=== PATIENT | female | born 1980 | race African-American/Black ===

== ENCOUNTER → 2017-07-04 | Outpatient (CLI) | payer OTHER ==
[~2017-07-04] MED LIST: CYMBALTA60 MG PO; LODINE XL500 MG PO; LUNESTA2 MG PO; NAPROSYN500 MG PO; TORADOL 10 MG T10 MG PO; ULTRAM 50MG TAB50 MG PO; VALIUM2 MG PO
== END ==
LOC: MRI 07:33
DX: M47.816 Spondylosis without myelopathy or radiculopathy, lumbar region (principal); M48.061 Spinal stenosis, lumbar region without neurogenic claudication

== ENCOUNTER → 2017-10-03 | Outpatient (CLI) | payer OTHER ==
[~2017-10-03] MED LIST changes: +BELSOMRA20 MG PO; +GABAPENTIN 100100 MG PO; +OXYCODONE-ACET1 EACH PO; +VITAMIN D1000 UNI1 PO; +XANAX 0.5 MG0.5 MG PO
== END ==
LOC: RAD 12:41
DX: M79.642 Pain in left hand (principal); M25.522 Pain in left elbow

== ENCOUNTER → 2017-12-24 | Outpatient (CLI) | payer OTHER ==
[~2017-12-24] MED LIST changes: -XANAX 0.5 MG0.5 MG PO
== END ==
LOC: RAD 10-08 14:24 → MRI 09:38
DX: M25.522 Pain in left elbow (principal)

== ENCOUNTER → 2018-01-15 | Outpatient (CLI) | payer OTHER | LOC: MRI 07:07 | DX: R51 Headache (principal) ==

== ENCOUNTER 2018-01-31 05:47 | Day surgery (SDC) | payer OTHER ==
[~2018-01-31] VITALS: Ht 175.3 cm; Wt 151.0 kg
--- NOTE | ~2018-01-31 | O ---
[facility] [place] [address] OPERATIVE REPORT Name: CHELLY LOPEZ Room #: 150-7 [facility] M.R.#: [id number] Admission: 01/31/18 Attend Phys: Rehan Hermosillo Discharge: Date of : 84 Report #: [id number] THIS REPORT FOR: //name// CC: Rehan Ward DATE OF SERVICE: 01/31/2018 PREOPERATIVE DIAGNOSES: Left shoulder pain, rotator cuff tear, impingement syndrome and morbid obesity. POSTOPERATIVE DIAGNOSES: Left shoulder pain; rotator cuff tear, high grade, near complete involving the supraspinatus; complex labral tear; intra-articular synovitis; impingement syndrome, subacromial bursitis and morbid obesity. PROCEDURES PERFORMED: Left shoulder arthroscopy, rotator cuff repair, subacromial decompression and extensive debridement. SURGEON: Rehan Sequeira M.D. ANESTHESIA: General with attempted preoperative ultrasound-guided interscalene block. FLUIDS: 800 mL crystalloid. ESTIMATED BLOOD LOSS: Less than 5 mL. DESCRIPTION OF PROCEDURE: After proper identification of the patient and operative site in the preoperative holding area, the operative site was signed by myself. Prophylactic antibiotics were given. The patient elected to receive an interscalene block after reviewing the risks, benefits, alternatives and potential complications with Dr. Diana Khan. Dr. Khan attempted an ultrasound-guided as well as a nerve stimulator technique with ultrasound guidance for her interscalene block. She had difficulty visualizing nerve roots and attempted to perform a block in the area that she thought was most appropriate. The patient noted minimal muscle twitching with nerve stimulator, and based on this, it was difficult to tell if she was going to receive much benefit from her block. The patient was then transferred to the operative suite after induction of satisfactory general anesthesia. The left shoulder was examined. It was stable throughout a full arc of motion and comparable to the preoperative assessment. She was carefully positioned in the right lateral decubitus position. Samaniego bag and extra roll were utilized to support the torso. Left shoulder was sterilely prepped and draped in the usual manner and placed in 10 pounds of balanced arthroscopic suspension. Posterior portal was established. Due to the [facility] [address] [place] [address] OPERATIVE REPORT Name: CHELLY LOPEZ Room #: 150-7 [facility] M.R.#: [id number] Admission: 01/31/18 Attend Phys: Rehan Hermosillo Discharge: Date of : 84 Report #: [id number] patient's body size and obesity, additional time was required to complete the procedure due to the larger soft tissue envelope. An anterior superior portal was created using a spinal needle for localization. Examination of the glenohumeral joint revealed articular-sided tear, the undersurface of the supraspinatus consistent with her preoperative MRI imaging. There was complex labral tearing noted in the anterior superior and posterior superior quadrants. Long head of the biceps tendon was intact and stable within its groove. No evidence of groove pathology was noted. The upper border of the subscapularis was intact. The remainder of the subscapularis was intact. It was stable in its superior labral attachment as well as the glenoid. The remaining frayed labrum was carefully debrided. Chondral surfaces were intact. The articular-sided tear was also marked with a 0 Prolene marking stitch. From the bursal side, a very thickened bursa was encountered. This was resected with motorized shaver. There was fraying in the undersurface of the coracoacromial arch and prominence to the acromion was removed using motorized bur. Approximately 3 mm of bone was resected here. The patient rotator cuff of the supraspinatus demonstrated pronounced softening and the probe could easily be passed through the few remaining bursal fibers. This area was carefully debrided with motorized shaver and a small non-retracted crescent-shaped tear that was less than a centimeter in size was noted. Greater tuberosity was prepared with combination of hand and motorized instrumentation. Additional posterolateral and lateral portals were created as well as a portal off the lateral border of the acromion. A double-loaded 4.75-mm SwiveLock anchor was utilized for the medial row. Sutures were passed in a horizontal mattress fashion and tied with locking sliding knot. These stitches were then placed through a separate SwiveLock anchor more laterally based, creating a double-row construct. Repair construct was stable to probing. Subacromial space was thoroughly irrigated with normal saline, 20 mL of 0.2% Naropin was injected in the subacromial space to aid in postoperative pain control based on the potential for her block to not have taken effect. The sterile dressing was applied. She was placed in a sling and abduction pillow for 6 weeks postoperatively. By: [id number] Rehan Sequeira MD /nt
[~2018-01-31 05:47] MED LIST changes: +XANAX 0.5 MG0.5 MG PO
[2018-01-31 06:54] VITALS: BP 143/93
[2018-01-31 09:55] VITALS: BP 143/93
== END 2018-01-31 10:55 | disposition home or self-care (01) ==
LOC: TBA 05:47 → OR 05:47
DX: M75.122 Complete rotator cuff tear or rupture of left shoulder, not specified as traumatic (principal); S43.402A Unspecified sprain of left shoulder joint, initial encounter; M65.812 Other synovitis and tenosynovitis, left shoulder; M75.42 Impingement syndrome of left shoulder; M75.52 Bursitis of left shoulder; E66.01 Morbid (severe) obesity due to excess calories; M19.90 Unspecified osteoarthritis, unspecified site; G47.33 Obstructive sleep apnea (adult) (pediatric); F17.210 Nicotine dependence, cigarettes, uncomplicated; Z98.890 Other specified postprocedural states; Z79.899 Other long term (current) drug therapy; Z91.041 Radiographic dye allergy status; Z91.040 Latex allergy status; Z68.42 Body mass index [BMI] 45.0-49.9, adult; X58.XXXA Exposure to other specified factors, initial encounter; Y93.89 Activity, other specified; Y92.89 Other specified places as the place of occurrence of the external cause; Y99.8 Other external cause status
CPT/HCPCS: 50101; 70005

== ENCOUNTER → 2018-08-07 | Outpatient (CLI) | payer OTHER, SELFPAY | LOC: CAT 14:38 | DX: G31.9 Degenerative disease of nervous system, unspecified (principal); M85.2 Hyperostosis of skull; G96.19 Other disorders of meninges, not elsewhere classified ==

== ENCOUNTER → 2018-09-12 | Outpatient (CLI) | payer OTHER, SELFPAY | LOC: MRI 06:28 | DX: M17.0 Bilateral primary osteoarthritis of knee (principal); M25.761 Osteophyte, right knee; M25.762 Osteophyte, left knee; M25.461 Effusion, right knee; M65.861 Other synovitis and tenosynovitis, right lower leg ==

== ENCOUNTER → 2018-09-24 | Outpatient (CLI) | payer OTHER, SELFPAY | LOC: MRI 07:42 | DX: M47.26 Other spondylosis with radiculopathy, lumbar region (principal); M51.16 Intervertebral disc disorders with radiculopathy, lumbar region; M48.07 Spinal stenosis, lumbosacral region; M51.27 Other intervertebral disc displacement, lumbosacral region; M47.897 Other spondylosis, lumbosacral region ==

== ENCOUNTER 2019-02-02 16:35 | Emergency (ER) | payer OTHER ==
[~2019-02-02] VITALS: Ht 177.8 cm; Wt 135.2 kg
[2019-02-02 16:46] VITALS: BP 160/82
[2019-02-02] MEDS ORDERED: NORCO 5-325 TA1 EAC1 PO (17:17)
== END 2019-02-02 17:33 | disposition home or self-care (01) ==
LOC: ER 16:35
DX: G89.29 Other chronic pain (principal); M79.10 Myalgia, unspecified site; M19.90 Unspecified osteoarthritis, unspecified site; G47.00 Insomnia, unspecified; G47.30 Sleep apnea, unspecified; F17.210 Nicotine dependence, cigarettes, uncomplicated; Z91.040 Latex allergy status; Z91.041 Radiographic dye allergy status

== ENCOUNTER 2019-02-04 08:39 | Emergency (ER) | payer OTHER ==
[~2019-02-04] VITALS: Ht 177.8 cm; Wt 135.2 kg
[~2019-02-04 08:39] MED LIST changes: +NORCO 5-325 TA1 EAC1 PO
[2019-02-04 08:40] VITALS: BP 147/78
[2019-02-04] MEDS ORDERED: MEDROL DOSPAK21 TA1 PO (08:55)
[2019-02-04] MEDS ORDERED: NORCO 5-325 TA1 EAC1 PO (09:10)
== END 2019-02-04 09:37 | disposition home or self-care (01) ==
LOC: ER 08:39
DX: M17.0 Bilateral primary osteoarthritis of knee (principal); M19.012 Primary osteoarthritis, left shoulder; M19.011 Primary osteoarthritis, right shoulder; G89.29 Other chronic pain; G47.00 Insomnia, unspecified; G47.30 Sleep apnea, unspecified; G43.909 Migraine, unspecified, not intractable, without status migrainosus; M48.00 Spinal stenosis, site unspecified; F32.9 Major depressive disorder, single episode, unspecified; F41.9 Anxiety disorder, unspecified; Z91.041 Radiographic dye allergy status; Z91.040 Latex allergy status

== ENCOUNTER → 2019-03-26 | Outpatient (CLI) | payer OTHER ==
[~2019-03-26] VITALS: Ht 172.7 cm; Wt 144.2 kg
[~2019-03-26] MED LIST changes: +CELEBREX 200 M200 M1 PO; +CHANTIX1 MG PO; +LYRICA 75 MG CA75 MG PO; +MEDROL DOSPAK21 TA1 PO; +OMEPRAZOLE MAGN20 MG PO; +TOPAMAX50 MG PO; +VITAMIN D5000 UNIT PO
[2019-03-26 09:47] VITALS: BP 133/76
--- NOTE | 2019-03-26 10:30 | NUR ---
Pain Clinic Assessment: 1. History of Osteoarthritis: * DJD History of Rheumatoid Arthritis: NO 2. Height: 5 ft. 8 in. 172.7 cm. Weight: 318.0 lb. oz. 144.244 kg. Patient's BMI: 48.4 3. Vital Signs: BP: 133/76 Pulse: 56 Resp: 16 Temp: 02 Sat: 100 ECG Mon: 4. Pain Intensity: 8 5. Fall Risk: Dizziness: N Needs help standing or walking: N Fallen in the last 3 months: Y Fall risk comments: 6. Patient on Blood Thinner: None 7. History of Hypertension: N 8. Opioid Therapy greater than 6 weeks: N Opiate Contract Signed: 9. Risk Assessment Tool Provided: 10. Functional Assessment Tool: 55/ 11. Recreational Drug Use: Unknown Drug Type: Tobacco Use: Former Smoker Tobacco Type: Cigars Amount or Packs/day: 1-2/DAY How Many Years: Alcohol Use: Yes Frequency: Special Occasions Quant: "OCCASIONAL" PER PT
--- NOTE | 2019-04-02 16:33 | HPC ---
[facility] [address] [address] [place] [address] PAIN MANAGEMENT CONSULTATION Name: CHELLY LOPEZ Room #: REG Arden Lara.#: [id number] Admission: 03/26/19 Attend Phys: Carlos Enrique Russ MD Discharge: Date of : 84 Report #: [id number] THIS REPORT FOR: //name// CC: Tonja Street [employer]ER Carlos Enrique Russ DATE OF SERVICE: 03/26/2019 I am seeing the patient today at the request of Dr. Street for spinal stenosis with neurogenic claudication. She reports that she has had ongoing pain since 2010. Pain is constant, ongoing severe, associated also with numbness, tingling, and weakness. It is worse with standing and walking and improves very little. As I took the history today, the word that kept coming to mins was sullen. She was short, seemed a bit suspicious and depressed. She scores her pain as an 8/10. Described as continuous, steady, constant, burning and stabbing. She has tried physical therapy and chiropractic which has helped a little bit with her upper back, but not much with her lower back. She sees a trusted chiropractor in [place], [place]. I asked about medications for pain and she told me that she had taken 300-400 mg of tramadol at this time with only modest improvement. She had increased the dose because the normal dose of 1-2 tablets was ineffective. CURR MEDICATIONS: Listed are Lyrica 200 mg daily, Celebrex 200 mg daily, Topamax 50 mg, alprazolam 1 mg p.r.n., omeprazole 20 mg, vitamin D recommended by chiropractor and Chantix 1 mg, which she has been on for 1 year. She has not smoked over that period of time and hopes to go off soon. She was on gabapentin, tramadol and has gone off of those recently in place of Lyrica. Medications were written by Dr. Odell, Dr. Street and Dr. Ward. ALLERGIES: LATEX. PAST MEDICAL HISTORY: Significant for uterine ablation, gastric sleeve surgery in 2016. She describes some hospital arthritis. 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 She denies use of tobacco and drinks alcohol occasionally in a social setting. She reports that she is undergoing a divorce. This may be why her mood appears to be depressed. REVIEW OF SYSTEMS: She has had some fatigue, weakness and migraine headaches, chronic sinuses, loss of appetite, depression and insomnia. Impact pain score is 65/70, extremely high number with complete interference of enjoyment of life, relationships with others, sleep and 9/10 for mood. [facility] [address] [place] [address] PAIN MANAGEMENT CONSULTATION Name: CHELLY LOPEZ Room #: REG CLArden Lara.#: [id number] Admission: 03/26/19 Attend Phys: Carlos Enrique Russ MD Discharge: Date of : 84 Report #: [id number] PHYSICAL EXAMINATION: GENERAL: She was quite respectful and answered questions directly, but again mood appeared depressed. VITAL SIGNS: Her height is 5 feet 8, weight 318, BMI of 48.4, blood pressure 133/76, heart rate is 56, respirations 16, O2 sat 100, pain intensity 8/10. She moves from sitting to standing position, ambulates with mild antalgic features. There is a noted genu varus. HEENT: Normal. Pupils equal, round, reactive to light. EOMs are intact. Mucous membranes are moist. NECK: Supple. CHEST: Clear to auscultation. CARDIAC: Rhythm regular, without murmur. Examination of the spine reveals some limitations in range of motion. Tenderness across the lumbosacral spine. Straight leg raising is bilaterally positive consistent with radiculopathy. MRI scan is reviewed as well as notes from Dr. Js Moses. These revealed spinal stenosis that would be consistent with neurogenic claudication, her presenting diagnosis. MRI of lumbar spine shows diffuse posterior disk bulging at L2-L3 and a narrowing of the thecal sac to 7 mm consistent with severe thecal sac stenosis on a developmentally slender spinal canal. There is bilateral facet arthrosis and narrowing. There is suggested impingement as well at L4-L5 with severe bilateral neural foraminal stenosis at that level impinging on the left L5 nerve roots. IMPRESSION: Lumbar radiculopathy. I think her pain is most likely related to nerve root impingement. She has had a single epidural injection performed by Dr. Saba, but I do not have those records. I have suggested that we repeat a trial of epidural injections today. I did not write for medication today in the office. She may benefit from an antidepressant medication for chronic pain and depression. Followup visit for L4-L5 epidural injection as soon as we can obtain preauthorization. <ELECTRONICALLY SIGNED> By: Carlos Enrique Russ MD 04/02/19 1633 [id number] [id number] Carlos Enrique Russ MD /nt
== END ==
LOC: PAIN 06:48
DX: M54.16 Radiculopathy, lumbar region (principal); M48.062 Spinal stenosis, lumbar region with neurogenic claudication; Z91.040 Latex allergy status; Z79.899 Other long term (current) drug therapy

== ENCOUNTER → 2019-04-27 | Outpatient (CLI) | payer OTHER ==
[~2019-04-27] VITALS: Ht 175.3 cm; Wt 136.1 kg
[~2019-04-27] MED LIST changes: +TRAMADOL HCL E200 MG PO
--- NOTE | ~2019-04-27 | HPC ---
[address] [address] PAIN MANAGEMENT CONSULTATION Name: CHELLY LOPEZ Room #: REG Arden Keller#: [id number] Admission: 04/27/19 ������������������ Attend Phys: Carlos Enrique Russ MD Discharge: ������������������ Date of : 84 Report #: [id number] THIS REPORT FOR: //name// CC: Tonja Evangelista Jad Russ DATE OF SERVICE: 04/27/2019 Followup visit for lumbar epidural steroid injection. The patient returns to pain clinic today for the epidural injection discussed on her initial assessment. We have received preauthorization to go forward. Symptoms have been essentially unchanged since that time. She continues to complain of pain and neurogenic claudication radiating into both legs. I reviewed the MRI once again with her, showing diffuse posterior disk bulge at L2-L3 as well as a narrowed canal. There is also a narrow canal at L4-L5 with diffuse disk bulging and stenosis. She has severe bilateral neural foraminal stenosis and impingement upon the exiting L5 nerve roots. IMPRESSION: Lumbar radiculopathy. PROCEDURE: Lumbar epidural steroid injection under fluoroscopic guidance. I have chosen the L3-L4 interspace. After informed consent, she was taken to fluoroscopic suite. She was placed prone, skin prepped with ChloraPrep. Skin anesthetized over the L3-L4 interspace. A 20-gauge Tuohy epidural needle advanced first attempt in the epidural space with loss of resistance. There was no blood or CSF aspirated. A 1 mL of Omnipaque injected with good spread of dye observed into the epidural space, followed by 3 mL of 0.5% lidocaine mixed with 10 mg of dexamethasone. She tolerated the procedure well, was observed for 45 minutes and discharged. ��������������������������������������������� ���������������������������������������� By: ��������������������������������������������� [id number] Carlos Enrique Russ MD /nt
[2019-04-27 08:55] VITALS: BP 146/96
--- NOTE | 2019-04-27 09:02 | NUR ---
Pain Clinic Assessment: 1. History of Osteoarthritis: DJD History of Rheumatoid Arthritis: NO 2. Height: 5 ft. 9 in. 175.3 cm. Weight: 300.0 lb. oz. 136.080 kg. Patient's BMI: 44.3 3. Vital Signs: BP: 146/96 Pulse: 56 Resp: 16 Temp: 02 Sat: 100 ECG Mon: 4. Pain Intensity: 8 5. Fall Risk: Dizziness: N Needs help standing or walking: N Fallen in the last 3 months: N Fall risk comments: 6. Patient on Blood Thinner: None 7. History of Hypertension: N 8. Opioid Therapy greater than 6 weeks: N Opiate Contract Signed: 9. Risk Assessment Tool Provided: 2-low 10. Functional Assessment Tool: 55/70 11. Recreational Drug Use: Never Drug Type: Tobacco Use: Former Smoker Tobacco Type: Amount or Packs/day: How Many Years: Alcohol Use: Yes Frequency: Quant:
== END | disposition home or self-care (01) ==
LOC: PAIN 04-07 06:48
DX: M51.16 Intervertebral disc disorders with radiculopathy, lumbar region (principal); M48.062 Spinal stenosis, lumbar region with neurogenic claudication; M48.061 Spinal stenosis, lumbar region without neurogenic claudication; M99.73 Connective tissue and disc stenosis of intervertebral foramina of lumbar region; Z87.891 Personal history of nicotine dependence; Z91.040 Latex allergy status; Z79.899 Other long term (current) drug therapy

== ENCOUNTER → 2019-06-18 | Outpatient (CLI) | payer OTHER ==
[~2019-06-18] VITALS: Ht 172.7 cm; Wt 137.6 kg
[~2019-06-18] MED LIST changes: +BACTRIM DS TAB1 EAC1 PO; +HYDROCODON-ACE1 EAC7 PO
--- NOTE | ~2019-06-18 | HPC ---
[facility] [place] [address] [address] [place] [address] PAIN MANAGEMENT CONSULTATION Name: CHELLY LOPEZ [id number] Admission: 06/18/19 Attend Phys: Carlos Enrique Russ MD Discharge: Date of : 84 Report #: [id number] THIS REPORT FOR: //name// CC: Tonja Street SHANNON Russ DATE OF SERVICE: 06/18/2019 REASON FOR VISIT: Followup visit for lumbar radiculopathy. SUBJECTIVE: The patient returns to the Pain Clinic today for possible repeat epidural injection. She received an injection on 04/27/2019 and had significant improvement, which has been sustained. Prior to her last injection, her pain score was a 7/10; it is now at 3/10, but it is bothering her nearly every day to some degree. She finds that there are periods where she has spasms that radiate into her right hip. These generally occur right after she gets up. They do resolve fairly quickly if she moves about, but the spasms are new, within the last 2 to 3 weeks, and indicate that the block may be diminishing in its effect somewhat. We talked about the importance of regular exercise and she is continuing to remain active. 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 She is concerned about this increased activity. PHYSICAL EXAMINATION: GENERAL: She is a pleasant 38-year-old. VITAL SIGNS: Blood pressure is 118/71, heart rate 60, respirations 16. Her BMI is 46.1. NEUROLOGIC: She can move independently from sitting to standing position. Her gait is mildly antalgic. She has tenderness across the low back, pain of a radiating nature into the right hip. Sensation and strength are intact. IMPRESSION: Low back pain with radiculopathy to the right hip with good response to initial epidural steroid injection. This is likely related to a diffuse posterior disk bulge with narrowing of the thecal sac to 7 mm, resulting in [id number] thecal sac stenosis on a developmentally slender central canal. She in addition has bilateral facet arthrosis, contributing to neural foraminal narrowing. RECOMMENDATION: Repeat L3-L4 epidural injection under fluoroscopic guidance. PROCEDURE: After informed consent, she was taken to the fluoroscopic suite, placed prone. The skin was prepped with ChloraPrep. Skin was anesthetized over the L3-L4 interspace. Using biplanar fluoroscopic views, I advanced the needle nicely into the epidural space using loss of resistance [place] [address] PAIN MANAGEMENT CONSULTATION Name: CHELLY LOPEZ Room #: REG [facility]#: [id number] Admission: 06/18/19 Attend Phys: Carlos Enrique Russ MD Discharge: Date of : 84 Report #: [id number] blood, nor CSF aspirated. A 1 mL of Omnipaque was injected. Good spread of dye was observed into the epidural space, was followed by 3 mL of 0.5% lidocaine mixed with 80 mg of triamcinolone. She tolerated the procedure well, was observed for 45 minutes and discharged. Followup visit planned as needed. By: [id number] Carlos Enrique Russ MD /nt
[2019-06-18 09:58] VITALS: BP 118/71
--- NOTE | 2019-06-18 10:09 | NUR ---
Pain Clinic Assessment: 1. History of Osteoarthritis: DJD History of Rheumatoid Arthritis: NO 2. Height: 5 ft. 8 in. 172.7 cm. Weight: 303.4 lb. oz. 137.622 kg. Patient's BMI: 46.1 3. Vital Signs: BP: 118/71 Pulse: 60 Resp: 16 Temp: 02 Sat: 100 ECG Mon: 4. Pain Intensity: 3 5. Fall Risk: Dizziness: N Needs help standing or walking: N Fallen in the last 3 months: N Fall risk comments: 6. Patient on Blood Thinner: None 7. History of Hypertension: N 8. Opioid Therapy greater than 6 weeks: N Opiate Contract Signed: 9. Risk Assessment Tool Provided: 2-low 10. Functional Assessment Tool: 55/ 11. Recreational Drug Use: Never Drug Type: Tobacco Use: Former Smoker Tobacco Type: Amount or Packs/day: How Many Years: Alcohol Use: Yes Frequency: Quant:
== END | disposition home or self-care (01) ==
LOC: RAD 07:01 → PAIN 07:01
DX: M54.16 Radiculopathy, lumbar region (principal); Z87.891 Personal history of nicotine dependence; Z91.040 Latex allergy status; Z79.899 Other long term (current) drug therapy

== ENCOUNTER → 2019-06-22 | Outpatient (CLI) | payer OTHER ==
[~2019-06-22] VITALS: Ht 172.7 cm; Wt 137.4 kg
--- NOTE | ~2019-06-22 | HPC ---
[facility] [place] [address] PAIN MANAGEMENT CONSULTATION Name: CHELLY LOPEZ [facility] [id number] Admission: 06/22/19 Attend Phys: Carlos Ernique Russ MD Discharge: Date of : 84 Report #: [id number] THIS REPORT FOR: //name// CC: Tonja Street SHANNON Russ DATE OF SERVICE: 06/22/2019 Followup visit for complaints of back and leg pain following the epidural injection. We received a phone call today from the patient who received an epidural injection just 5 days ago. The injection went smoothly was performed almost identical to the injection that provided her with a fairly dramatic relief on 04/27/2019. I confirmed needle placement from the epidural shot performed on 06/18/2019 and also location of the epidurogram. Because of her poor response and ongoing back pain, I asked her to return to the clinic today for assessment. She had not been able to take her own temperature and then has not been able to have anyone examine her back. Today, she reports that her pain intensity is high. PHYSICAL EXAMINATION: VITAL SIGNS: Blood pressure is 125/77, heart rate 62, respirations 16. She is afebrile. She moves independently from sitting to standing position, but walks with antalgic gait. She complains of pain across her low back and localized tenderness at the spot of the injection, although I can barely see the needle courtney. There is no fluctuance, no redness, no evidence of infection. Straight leg raising is negative. Although she complains of some diffuse pain, nonradicular radiating down into both legs. There are no muscle spasms. IMPRESSION: 1. Chronic low back pain with radiculopathy. She has severe stenosis at L2-L3 due to disk bulging and a developmentally slender spinal canal. There is also subarticular zone stenosis consistent with trefoil type stenosis at L4-L5, also on a developmentally slender canal. 2. Recurring low back pain after epidural injection. I do not see any evidence here of infection or other concerns. I cannot answer why she is having more pain after the injection than she did prior. We will observe cautiously and I gave her my own cell phone number if anything changes or if she develops any additional symptoms of concern. I have given her a prescription for hydrocodone for the acute pain over the next 3-5 days with hopes that this will resolve on [address] [address] PAIN MANAGEMENT CONSULTATION Name: CHELLY LOPEZ Room #: REG JOSR Keller#: [id number] Admission: 06/22/19 Attend Phys: Carlos Enrique Russ MD Discharge: Date of : 84 Report #: [id number] its own spontaneously and I have written her a note to be excused from work until Saturday. Follow up planned by phone. By: 1804 0628 Carlos Enrique Russ MD /nt
[2019-06-22 13:42] VITALS: BP 125/77
[2019-06-22 13:49] VITALS: BP 125/77
--- NOTE | 2019-06-22 14:12 | NUR ---
Pain Clinic Assessment: 1. History of Osteoarthritis: DJD History of Rheumatoid Arthritis: NO 2. Height: 5 ft. 8 in. 172.7 cm. Weight: 303.0 lb. oz. 137.440 kg. Patient's BMI: 46.1 3. Vital Signs: BP: 125/77 Pulse: 62 Resp: 16 Temp: 02 Sat: 100 ECG Mon: 4. Pain Intensity: 12 5. Fall Risk: Dizziness: Y Needs help standing or walking: N Fallen in the last 3 months: N Fall risk comments: 6. Patient on Blood Thinner: None 7. History of Hypertension: N 8. Opioid Therapy greater than 6 weeks: N Opiate Contract Signed: 9. Risk Assessment Tool Provided: 2-low 10. Functional Assessment Tool: 55/ 11. Recreational Drug Use: Never Drug Type: Tobacco Use: Former Smoker Tobacco Type: Amount or Packs/day: How Many Years: Alcohol Use: Yes Frequency: Quant:
== END ==
LOC: PAIN 13:17
DX: M54.16 Radiculopathy, lumbar region (principal); M48.061 Spinal stenosis, lumbar region without neurogenic claudication

== ENCOUNTER → 2019-06-29 | Outpatient (CLI) | payer OTHER | LOC: MRI 12:02 | DX: M51.46 Schmorl's nodes, lumbar region (principal); M51.45 Schmorl's nodes, thoracolumbar region; M85.68 Other cyst of bone, other site; M51.16 Intervertebral disc disorders with radiculopathy, lumbar region; M48.061 Spinal stenosis, lumbar region without neurogenic claudication; M12.88 Other specific arthropathies, not elsewhere classified, other specified site; M25.78 Osteophyte, vertebrae; M51.27 Other intervertebral disc displacement, lumbosacral region ==

== ENCOUNTER 2019-09-02 06:27 | Emergency (ER) | payer OTHER ==
[~2019-09-02] VITALS: Ht 172.7 cm; Wt 140.2 kg
[~2019-09-02 06:27] MED LIST changes: +NORCO 10-325 T1 EACH PO
[2019-09-02] MEDS ORDERED: NORCO 10-325 T1 EAC1 PO (09:08)
[2019-09-02 09:18] VITALS: BP 141/73
[2019-09-10] MEDS ORDERED: NORCO 10-325 T1 EACH PO (12:58)
[2019-09-10] MEDS ORDERED: NORCO 10-325 T1 EAC1 PO (12:58)
== END 2019-09-02 09:19 | disposition home or self-care (01) ==
LOC: ER 06:27
DX: G89.4 Chronic pain syndrome (principal); Z87.891 Personal history of nicotine dependence; Z91.040 Latex allergy status

== ENCOUNTER → 2019-09-10 | Outpatient (CLI) | payer OTHER ==
[~2019-09-10] VITALS: Ht 172.7 cm; Wt 139.3 kg
[~2019-09-10] MED LIST changes: +NORCO 10-325 T1 EAC1 PO
[2019-09-10 10:41] VITALS: BP 152/81
--- NOTE | 2019-09-10 11:00 | NUR ---
Pain Clinic Assessment: 1. History of Osteoarthritis: DJD History of Rheumatoid Arthritis: NO 2. Height: 5 ft. 8 in. 172.7 cm. Weight: 307.0 lb. oz. 139.255 kg. Patient's BMI: 46.7 3. Vital Signs: BP: 152/81 Pulse: 75 Resp: 18 Temp: 02 Sat: 100 ECG Mon: 4. Pain Intensity: 8 5. Fall Risk: Dizziness: N Needs help standing or walking: N Fallen in the last 3 months: N Fall risk comments: 6. Patient on Blood Thinner: None 7. History of Hypertension: N 8. Opioid Therapy greater than 6 weeks: N Opiate Contract Signed: 9. Risk Assessment Tool Provided: 2-low 10. Functional Assessment Tool: 55/70 11. Recreational Drug Use: Never Drug Type: Tobacco Use: Former Smoker Tobacco Type: Amount or Packs/day: How Many Years: Alcohol Use: Yes Frequency: Quant:
--- NOTE | 2019-09-10 17:02 | HPC ---
[facility] [address] [address] [address] PAIN MANAGEMENT CONSULTATION Name: CHELLY LOPEZ Room #: REG JOSR Jane.#: [id number] Admission: 09/10/19 Attend Phys: Carlos Enrique Russ MD Discharge: Date of : 84 Report #: [id number] THIS REPORT FOR: //name// CC: Oj Jacobo MD DATE OF SERVICE: 09/10/2019 The patient presents to the pain clinic today complaining of chronic pain. She has several different pain generators at this point. She complains significantly of lumbar radicular pain with neurogenic claudication. Five minutes of walking, has her looking for chair. She has been trying to exercise. She also has significant genu valgus. She has seen Dr. Jacobo and has been told that she may need knee surgery at some point. I do not have x-rays to confirm degree of pathology there. She has some pain across her lumbosacral segment. She has been told by Dr. Carrion that her knees are more significant than her back and he has recommended that she address her obesity before moving forward with any additional procedural treatments. He has acknowledged for spinal stenosis. I have treated her spinal stenosis with two epidural injections. The first was helpful. The second did not provide relief, although was performed identically. She complained of some increased pain following the second injection, which resolved over time. She has been taking hydrocodone 10 mg b.i.d., which has assisted with pain management. She has denied side effects and is grateful for the improvement in pain, which allows her to work. She does have a co-analgesic including Lyrica, celecoxib. She has been taking Topamax, alprazolam, and Chantix. She has acknowledged our staff a significant amount of stress, having recently gone through this difficult divorce. Her functional assessment score reflects impacts on her day-to-day activities consistent with stress and pain. Her score of 55/70. She is, however, continuing to work. Pain intensity today is an 8/10 with her multiple pain generators. She was in the Emergency Room for recent stress related symptoms. She was out of medication and may have been going through some withdrawal from her opioids. Dr. Mak in the Emergency Room provided her with 40 tablets. She did not acknowledge to him that she was on an opioid agreement. We discussed her [address] [address] PAIN MANAGEMENT CONSULTATION Name: CHELLY LOPEZ Room #: REG CLArden Arianna#: [id number] Admission: 09/10/19 Attend Phys: Carlos Enrique Russ MD Discharge: Date of : 84 Report #: [id number] responsibilities with that agreement today. I will continue to provide her medications. Her MME is 20. She must safeguard the medication carefully and use it for improvement in day-to-day function and keep her working. She acknowledges this. PHYSICAL EXAMINATION: GENERAL: Today, her affect is depressed. VITAL SIGNS: Blood pressure is 152/81, heart rate 75, respirations 18. MUSCULOSKELETAL: She moves independently from sitting to standing position. She walks with an antalgic gait. There is quite evident genu valgus. She has pain with back extension, which reproduces some pain down into her legs bilaterally. Deep tendon reflexes are trace at the knees and 1+ at the ankles bilaterally. There is no focal weakness. MRI is reviewed and there is significant spinal stenosis at L1-L2, L3-L4 and at L2-L3. There is hypertrophy of the ligamentum flavum. I think the most serious level is L3-L4. This may well be contributing to some of her symptoms of neurogenic claudication. RECOMMENDATIONS: She has not responded to epidural injections. She does not appear to be a surgical candidate for decompressive laminectomy. I do have patients who have responded favorably to minimally invasive lumbar decompression. MILD is certainly something that could be undertaken for patients who are considered a contraindication for more aggressive surgery. Nothing is 100% successful and I discussed with the patient. MILD has, however, been shown to be relatively safe and there have been very few serious complications. The down side risk would be failure in which case a more aggressive surgery could be considered. She is working with Dr. Ward and with friends to approach her obesity and weight loss. Dr. Carrion suggested a revision of her gastric sleeve. This is certainly an option as well. PLAN: Medications were renewed under terms of our agreement and I will see her back in 2 months. <ELECTRONICALLY SIGNED> By: Carlos Enrique Russ MD 09/10/19 1702 [id number] Carlos Enrique Russ MD /nt
== END ==
LOC: PAIN 06:44
DX: M48.061 Spinal stenosis, lumbar region without neurogenic claudication (principal); G89.29 Other chronic pain

== ENCOUNTER → 2019-11-12 | Outpatient (CLI) | payer OTHER ==
[~2019-11-12] VITALS: Ht 172.7 cm; Wt 145.2 kg
[~2019-11-12] MED LIST changes: +PREVACID30 MG PO
--- NOTE | ~2019-11-12 | HPC ---
[facility] [address] [place] [address] PAIN MANAGEMENT CONSULTATION Name: CHELLY LOPEZ Room #: REG JOSR Arianna#: [id number] Admission: 11/12/19 Attend Phys: Carlos Enrique Russ MD Discharge: Date of : 84 Report #: [id number] THIS REPORT FOR: cc: Tonja Street DNP, Mary E. DNP Morgan, Richard L. MD ~ CC: Oj Spencer DATE OF SERVICE: 11/12/2019 Followup visit for lumbar radiculopathy secondary to multilevel spinal stenosis. The patient returns to pain clinic today hoping for another epidural injection. She had relief with one of her two prior injections. It was fairly substantial. I reviewed the two films. Hopefully, we will be able to repeat the results of the first injection. Pain is typical of neurogenic claudication with pain in her back and radiating into her legs with standing and walking. She has some significant genu valgus and has seen Dr. Houston as we have discussed. This may be affecting her gait as well. Hydrocodone 10/325 taken twice a day as assisting with pain management. She denies side effects and I have agreed to provide this for her under terms of an opioid agreement. I reviewed her prescription drug monitoring program information and there are no unexpected entries. Tonja Jad also provides alprazolam for her. She has been going through a divorce and things are better now that she has moved into her own apartment. She has decreased her stress level significantly with the move and talks about yoga and other measures to alleviate pain. We talked about continuing to walk out of doors once the weather improves. All medications reviewed and reconciled. PHYSICAL EXAMINATION: Today, she is 5 feet 8 inches. BMI of 46.7. Blood pressure 152/81, heart rate 75, respirations 18. Pain intensity is 8/10. Gait is antalgic. Pain across low back pain radiating into both legs with standing and walking. IMPRESSION: Multilevel spinal stenosis with neurogenic claudication and lumbar [facility] [address] [place] [address] PAIN MANAGEMENT CONSULTATION Name: JESSICACHELLY Room #: REG [facility] Jane.#: [id number] Admission: 11/12/19 Attend Phys: Carlos Enrique Russ MD Discharge: Date of : 84 Report #: [id number] radiculopathy. PLAN: Epidural injection today. We discussed the possibility of an MILD referral in the future, she does respond Medications were ordered electronically. PROCEDURE: After informed consent, she was taken to fluoroscopic suite, placed prone, skin prepped with ChloraPrep. Skin anesthetized over the L3-L4 interspace. A 20-gauge Tuohy epidural needle advanced on the first attempt in the epidural space with loss of resistance. There was no blood nor CSF aspirated. I used a 6-inch 20-gauge Tuohy. Good epidurogram was achieved with 1 mL of Omnipaque and this was then followed by 3 mL of 0.5% lidocaine mixed with 80 mg of triamcinolone. She tolerated the procedure well and was observed for 45 minutes and discharged. Followup visit planned as needed. By: [id number] [id number] Carlos Enrique Russ MD /nt
[2019-11-12 14:18] VITALS: BP 148/86
--- NOTE | 2019-11-12 14:29 | NUR ---
Pain Clinic Assessment: 1. History of Osteoarthritis: DJD History of Rheumatoid Arthritis: NO 2. Height: 5 ft. 8 in. 172.7 cm. Weight: 320.0 lb. oz. 145.152 kg. Patient's BMI: 48.7 3. Vital Signs: BP: 148/86 Pulse: 72 Resp: 16 Temp: 02 Sat: 100 ECG Mon: 4. Pain Intensity: 8 5. Fall Risk: Dizziness: N Needs help standing or walking: N Fallen in the last 3 months: N Fall risk comments: 6. Patient on Blood Thinner: None 7. History of Hypertension: N 8. Opioid Therapy greater than 6 weeks: N Opiate Contract Signed: 9. Risk Assessment Tool Provided: 2-low 10. Functional Assessment Tool: 55/70 11. Recreational Drug Use: Never Drug Type: Tobacco Use: Former Smoker Tobacco Type: Amount or Packs/day: How Many Years: Alcohol Use: Yes Frequency: Quant:
== END | disposition home or self-care (01) ==
LOC: PAIN 06:54
DX: M54.16 Radiculopathy, lumbar region (principal); M48.062 Spinal stenosis, lumbar region with neurogenic claudication; Z98.890 Other specified postprocedural states; Z79.899 Other long term (current) drug therapy

== ENCOUNTER → 2020-01-04 | Outpatient (CLI) | payer OTHER ==
[~2020-01-04] VITALS: Ht 172.7 cm; Wt 152.8 kg
[~2020-01-04] MED LIST changes: +OMEPRAZOLE 20 M20 M1 PO; +VITAMIN B-121000 MC2 PO; +VITAMIN C1000 MG PO; -XANAX 0.5 MG0.5 MG PO; +XANAX1 MG PO
--- NOTE | ~2020-01-04 | HPC ---
[facility] [place] [address] [address] [place] [address] PAIN MANAGEMENT CONSULTATION Name: CHELLY LOPEZ Room #: REG JOSR Jane.#: [id number] Admission: 01/04/20 Attend Phys: Carlos Enrique Russ MD Discharge: Date of : 84 Report #: [id number] THIS REPORT FOR: cc: Tonja Street DNP, Mary E. DNP Morgan, Richard L. MD ~ CC: Oj Russ DATE OF SERVICE: 01/04/2020 Followup visit for chronic low back pain with lumbar radiculopathy. Multiple level spinal stenosis. The patient is here today in the pain clinic requesting an epidural injection. She has found response to these injections when they are performed with a slightly higher volume at L3-L4. We have on multiple visits reviewed her MRI and have discussed stenosis and neurogenic claudication. She is grateful for the benefits that she is receiving from the epidurals, which has limited her use of additional pain medicine. She has seen Dr. Carrion. Surgery is an option at some point perhaps, but she would certainly like to avoid it. She understands that her weight contributes to pain and the difficult task of losing weight has been discussed with many physicians. We discussed medication management. Dr. Street has provided her with tramadol ER 200 mg and she finds these helpful, but gets along just about as well with the 50 mg tablets. She has another refill on the tramadol ER, but I have encouraged her at next visit to reduce her daily mg dose of tramadol by taking the 50 mg tablets when she needs them during the day. She is amenable to this and will do so. I think we can drop her tramadol by 50%. She is also on hydrocodone, but is at a low MME. She gets 60 tablets per month and takes them pretty much on schedule, 1 in the morning and 1 later in the day after she has had a hard day and the pain is increased. Her MME is 20. Her prescription drug monitoring program shows no unexpected entries. I prescribe the hydrocodone, and Dr. Street prescribes the alprazolam for sleep, anxiety, depression and also the tramadol. This combination of medicines was reviewed today and we talked about polypharmacy with the opioid and benzodiazepine interaction. She has taken them safely at current doses and she will continue to be very cautious with them. Safeguarding of medications has been discussed, she denies any significant side effects other than some mild constipation. [address] [address] PAIN MANAGEMENT CONSULTATION Name: CHELLY LOPEZ Room #: REG CLI JackieRupinder#: [id number] Admission: 01/04/20 Attend Phys: Carlos Enrique Russ MD Discharge: Date of : 84 Report #: [id number] We did discuss her stress level, it is very high; she continues to go through a divorce. She is seeking out counseling and will be seeing Dr. Ramirez for her first visit upcoming. She is considering moving back to her home state of [place] or [place] where she has family. I talked with her about this briefly and discussed how healthy it is I think for her to seek out counseling rather than to internalize these things. They do contribute to her pain. PHYSICAL EXAMINATION: Blood pressure is 145/82, heart rate is 80, respirations 18, O2 sat 99%. Pain intensity reported today is an 8-9/10. Pain is in her low back and her legs. She walks with antalgic features. She has positive straight leg raising bilaterally that follows the L2-L3 distribution as well as pain down the back of her legs following L5-S1. IMPRESSION: 1. Lumbar radiculopathy secondary to multilevel spinal stenosis. 2. Morbid obesity. 3. Management of medication discussion under terms of written opioid agreement. 4. Situational depression, she is managing that. PLAN: Epidural steroid injection under fluoroscopic guidance. PROCEDURE: After informed consent, she was taken to fluoroscopic suite, placed prone, skin prepped with ChloraPrep, skin anesthetized over the L3-L4 interspace. I used a 6-inch 20-gauge Tuohy epidural needle once again. Needle was advanced in the epidural space on the first attempt with loss of resistance technique. There was no blood nor CSF aspirated. Epidurogram was achieved with 1 mL of Omnipaque. I then followed it up with 4 mL of 0.5% lidocaine mixed with 80 mg triamcinolone. She tolerated the procedure well. There were no complications. She was observed in the recovery room for a short time and discharged. Followup visit planned as needed. By: [id number] Carlos Enrique Russ MD /nt
[2020-01-04 15:09] VITALS: BP 117/78
--- NOTE | 2020-01-04 15:33 | NUR ---
Pain Clinic Assessment: 1. History of Osteoarthritis: DJD History of Rheumatoid Arthritis: DENIES 2. Height: 5 ft. 8 in. 172.7 cm. Weight: 336.8 lb. oz. 152.772 kg. Patient's BMI: 51.2 3. Vital Signs: BP: 117/78 Pulse: 60 Resp: 18 Temp: 02 Sat: 100 ECG Mon: 4. Pain Intensity: 8 5. Fall Risk: Dizziness: N Needs help standing or walking: N Fallen in the last 3 months: N Fall risk comments: 6. Patient on Blood Thinner: None 7. History of Hypertension: N 8. Opioid Therapy greater than 6 weeks: N Opiate Contract Signed: 9. Risk Assessment Tool Provided: 2-low 10. Functional Assessment Tool: 64/70 11. Recreational Drug Use: Never Drug Type: Tobacco Use: Former Smoker Tobacco Type: Amount or Packs/day: How Many Years: Alcohol Use: Yes Frequency: Weekly Quant:
== END | disposition home or self-care (01) ==
LOC: PAIN 07:02
DX: M48.061 Spinal stenosis, lumbar region without neurogenic claudication (principal); M54.16 Radiculopathy, lumbar region; G89.29 Other chronic pain; E66.01 Morbid (severe) obesity due to excess calories; F43.21 Adjustment disorder with depressed mood; Z79.899 Other long term (current) drug therapy; Z87.891 Personal history of nicotine dependence; Z79.891 Long term (current) use of opiate analgesic; Z91.040 Latex allergy status; Z98.890 Other specified postprocedural states

== ENCOUNTER 2020-02-09 09:00 | Emergency (ER) | payer OTHER ==
[~2020-02-09] VITALS: Ht 175.3 cm; Wt 145.2 kg
[2020-02-09] MEDS ORDERED: AMITRIPTYLINE H25 M3 PO (09:37)
[2020-02-09 09:39] LABS: ABSOLUTE NEUTROPHILS 6.3 thou/uL (1.4-8.2); BASOPHILS 0.7 % (0.0-2.0); EOSINOPHILS 1.3 % (0.0-3.0); HEMATOCRIT 45.1 % (37.0-47.0); HEMOGLOBIN 15.3 gm/dL (12.0-15.0); LYMPHOCYTES 18.3 % (24.0-44.0); MCH 32.1 pg (26.0-34.0); MCHC 33.9 g/dL (28.0-37.0); MCV 94.7 fL (80.0-100.0); MONOCYTES 7.2 % (1.0-8.0); POLYS 72.5 % (36.0-66.0); RBC 4.76 mil/uL (4.20-5.00); RDW 14.1 % (10.5-14.5); WBC 8.6 thou/uL (4.0-11.0)
[2020-02-09 09:46] LABS: CALCIUM 9.4 mg/dL (8.5-10.1); CREATININE 0.9 mg/dL (0.6-1.0); POTASSIUM 3.3 mmol/L (3.5-5.1)
[2020-02-09 10:01] LABS: ALBUMIN 3.3 g/dL (3.4-5.0); TOTAL BILIRUBIN 0.6 mg/dL (0.2-1.0); TOTAL PROTEIN 7.2 g/dL (6.4-8.2)
[2020-02-09 10:02] LABS: PLATELET COUNT 185 thou/uL (150-400); PLATELET ESTIMATE NORMAL
[2020-02-09 10:08] LABS: LARGE PLATELETS FEW
[2020-02-09 10:11] LABS: URINE BILIRUBIN 2+ (Negative); URINE BLOOD 1+ (Negative); URINE CLARITY CLEAR; URINE COLOR YELLOW; URINE GLUCOSE-RANDOM* NEGATIVE (Negative); URINE KETONES 3+ (Negative); URINE LEUKOCYTES-REFLEX NEGATIVE (Negative); URINE NITRITE-REFLEX NEGATIVE (Negative); URINE PROTEIN (DIPSTICK) TRACE (Negative); URINE SPECIFIC GRAVITY >= 1.030 (1.005-1.035)
[2020-02-09 10:16] LABS: ICTOTEST (BILI CONFIRMATORY) Positive (Negative)
[2020-02-09 10:22] LABS: MUCUS 4-6 Moderate strn/LPF (None Seen); SQUAMOUS >10 Many /LPF (0-3)
[2020-02-09 10:23] LABS: URINE RBC 3-10 Few /HPF (0-2); URINE WBC-REFLEX 0-5 Rare /HPF (0-5)
[2020-02-09 10:24] LABS: BACTERIA-REFLEX 1-9 Few /HPF (None Seen); CASTS None Seen /LPF (None Seen)
[2020-02-09 10:26] LABS: URIC ACID CRYSTALS >10 Many /LPF (None Seen)
[2020-02-09] MEDS ORDERED: PHENERGAN 25 MG25 MG PO (10:39)
[2020-02-09] MEDS ORDERED: ZOFRAN ODT4 MG PO (10:39)
[2020-02-09 11:27] VITALS: BP 157/86
== END 2020-02-09 11:28 | disposition home or self-care (01) ==
LOC: ER 09:00
PROVIDERS: Emergency Medicine
DX: F11.23 Opioid dependence with withdrawal (principal); R11.2 Nausea with vomiting, unspecified; R53.1 Weakness; R19.7 Diarrhea, unspecified; R10.9 Unspecified abdominal pain; M19.90 Unspecified osteoarthritis, unspecified site; Z98.84 Bariatric surgery status; Z79.899 Other long term (current) drug therapy; Z91.040 Latex allergy status; Z87.891 Personal history of nicotine dependence

== ENCOUNTER → 2020-04-04 | Outpatient (CLI) | payer OTHER ==
[~2020-04-04] VITALS: Ht 172.7 cm; Wt 147.8 kg
[~2020-04-04] MED LIST changes: +AMITRIPTYLINE H25 M3 PO; +HYDROCODON-ACE1 EAC5 PO; +PHENERGAN 25 MG25 MG PO; -TRAMADOL HCL E200 MG PO; +TRAMADOL HCL50 MG PO; +ZOFRAN ODT4 MG PO
--- NOTE | ~2020-04-04 | HPC ---
[facility] [address] [place] [address] PAIN MANAGEMENT CONSULTATION Name: CHELLY LOPEZ Room #: REG JOSR Jane.#: [id number] Admission: 04/04/20 Attend Phys: Carlos Enrique Russ MD Discharge: Date of : 84 Report #: [id number] THIS REPORT FOR: cc: Tonja Street DNP, Mary E. DNP Morgan, Richard L. MD ~ CC: Tonja Russ DATE OF SERVICE: 04/03/2020 Followup visit for chronic low back pain with radiculopathy, sacroiliac joint pain with lumbar spondylosis. The patient has had periodic injections, generally epidural injections with good relief. She has one scheduled for later this week. She presents today with pain across the low back and tenderness of the sacroiliac joints. I had her on an opioid agreement. She reports that she takes 1-2 hydrocodone 10/325 tablets a day, finds these to be quite satisfactory, providing good relief for her when she needs it. Her pain intensity is a 9/10 today, but when she takes the pain medication, she can drop that in half. 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 She is grateful for that improvement in day-to-day function and denies side effects. She carefully safeguards her medication. My primary concern for her is that she is 39. This is a lot early stage in life to become dependent on opioids for chronic intractable pain. Perhaps, we can find something that does not involve opioids for her, but for the moment, her high improvement in function as a result of this low dose of opioid, I think, warrants its use. MME is 30. The [facility] prescription drug monitoring program information reviewed. There are no unexpected entries. We have done a urine drug screen on her recently as well and there were no unexpected substances in her drug screen either, so we will continue to monitor her carefully under terms of the CDC guideline. PHYSICAL EXAMINATION: She seems mildly depressed. Blood pressure 119/72, heart rate 65, respirations 14, BMI is 49.5. She has tenderness across the low back, tenderness in the sacroiliac joints. Her gait is mildly antalgic. IMPRESSION: Chronic low back pain with spondylosis and radiculopathy. [facility] [address] [place] [address] PAIN MANAGEMENT CONSULTATION Name: CHELLY LOPEZ Room #: REG [facility] Jane.#: [id number] Admission: 04/04/20 Attend Phys: Carlos Enrique Russ MD Discharge: Date of : 84 Report #: [id number] Medications renewed and she will follow up for injection in 2-3 days. By: 1541 1823 Carlos Enrique Russ MD /nt
[2020-04-04 15:17] VITALS: BP 119/72
--- NOTE | 2020-04-04 15:25 | NUR ---
Pain Clinic Assessment: 1. History of Osteoarthritis: DJD History of Rheumatoid Arthritis: DENIES 2. Height: 5 ft. 8 in. 172.7 cm. Weight: 325.8 lb. oz. 147.782 kg. Patient's BMI: 49.5 3. Vital Signs: BP: 119/72 Pulse: 65 Resp: 14 Temp: 02 Sat: 100 ECG Mon: 4. Pain Intensity: 9 5. Fall Risk: Dizziness: N Needs help standing or walking: N Fallen in the last 3 months: N Fall risk comments: 6. Patient on Blood Thinner: None 7. History of Hypertension: N 8. Opioid Therapy greater than 6 weeks: N Opiate Contract Signed: 9. Risk Assessment Tool Provided: 2-low 10. Functional Assessment Tool: 64/70 11. Recreational Drug Use: Never Drug Type: Tobacco Use: Former Smoker Tobacco Type: Amount or Packs/day: How Many Years: Alcohol Use: Yes Frequency: Quant:
== END ==
LOC: PAIN 07:15
PROVIDERS: ATTEND Anesthesiology Pain Medicine
DX: M47.26 Other spondylosis with radiculopathy, lumbar region (principal); Z79.891 Long term (current) use of opiate analgesic

== ENCOUNTER → 2020-04-07 | Outpatient (CLI) | payer OTHER ==
[~2020-04-07] VITALS: Ht 172.7 cm; Wt 147.8 kg
--- NOTE | ~2020-04-07 | HPC ---
[facility] [place] [address] [address] [place] [address] PAIN MANAGEMENT CONSULTATION Name: CHELLY LOPEZ Room #: REG JOSR Lara.#: [id number] Admission: 04/07/20 Attend Phys: Carlos Enrique Russ MD Discharge: Date of : 84 Report #: [id number] THIS REPORT FOR: cc: Tonja Street DNP, Mary E. DNP Morgan, Richard L. MD ~ CC: Tonja Russ DATE OF SERVICE: 04/07/2020 Followup visit for lumbar radiculopathy. The patient is here today for a lumbar epidural injection. I saw her just a few days ago on 04/04/2020. Please see the dictation from that visit. She was unable to receive her injection on that date. She has always responded favorably to epidural injections. Pain is both radicular and she also has some spondylitic pain across the sacroiliac joints. IMPRESSION: Lumbar radiculopathy. PROCEDURE: Epidural steroid injection. She was taken to fluoroscopic suite for treatment, placed prone, skin prepped with ChloraPrep. Skin anesthetized over the L3-L4 interspace. Once again, I used a 6-inch 20-gauge Tuohy epidural needle. The skin was anesthetized and a 20-gauge needle was advanced in the epidural space in first attempt using loss of resistance technique. I used 1 mL of Omnipaque. Excellent epidurogram was achieved. It was followed by 4 mL of 0.5% lidocaine mixed with 80 mg of triamcinolone. She tolerated the procedure well and there were no complications. She was taken to recovery room for observation and discharged after a short stay. Followup visit planned as needed. By: 1544 1557 Carlos Enrique Russ MD /nt
[2020-04-07 14:45] VITALS: BP 130/78
--- NOTE | 2020-04-07 14:58 | NUR ---
Pain Clinic Assessment: 1. History of Osteoarthritis: knees elbows shoulders hips History of Rheumatoid Arthritis: DENIES 2. Height: 5 ft. 8 in. 172.7 cm. Weight: 325.8 lb. oz. 147.782 kg. Patient's BMI: 49.5 3. Vital Signs: BP: 130/78 Pulse: 71 Resp: 20 Temp: 02 Sat: 100 ECG Mon: 4. Pain Intensity: 9 5. Fall Risk: Dizziness: N Needs help standing or walking: N Fallen in the last 3 months: N Fall risk comments: 6. Patient on Blood Thinner: None 7. History of Hypertension: N 8. Opioid Therapy greater than 6 weeks: N Opiate Contract Signed: 9. Risk Assessment Tool Provided: 2-low 10. Functional Assessment Tool: 60/70 11. Recreational Drug Use: Never Drug Type: Tobacco Use: Former Smoker Tobacco Type: Cigars Amount or Packs/day: 2 packs/week How Many Years: 17 Alcohol Use: Yes Frequency: Special Occasions Quant: 1-2 glasses
== END | disposition home or self-care (01) ==
LOC: PAIN 06:56
PROVIDERS: ATTEND Anesthesiology Pain Medicine
DX: M54.16 Radiculopathy, lumbar region (principal); G89.29 Other chronic pain; Z98.890 Other specified postprocedural states; Z79.899 Other long term (current) drug therapy; Z87.891 Personal history of nicotine dependence; Z91.040 Latex allergy status

== ENCOUNTER → 2020-05-05 | Outpatient (CLI) | payer OTHER | LOC: LAB 13:59 | PROVIDERS: ATTEND Nurse Practitioner | DX: E53.8 Deficiency of other specified B group vitamins (principal) ==

== ENCOUNTER → 2020-05-18 | Outpatient (CLI) | payer OTHER | LOC: LAB 09:00 | PROVIDERS: ATTEND Internal Medicine Gastroenterology | DX: Z01.812 Encounter for preprocedural laboratory examination (principal); Z20.828 Contact with and (suspected) exposure to other viral communicable diseases ==

== ENCOUNTER → 2020-05-23 | Outpatient (CLI) | payer OTHER ==
[~2020-05-23] VITALS: Ht 175.3 cm; Wt 147.0 kg
--- NOTE | 2020-05-24 16:06 | PATH ---
[facility] [address] [place] [address] PATHOLOGY RPT PROCEDURE Name: CHELLY LOPEZ Room #: REG JOSR Jane.#: [id number] Admission: 05/23/20 Date of : 84 Discharge: Report #: [id number] Path Case #: [id number] L[facility] Accession Number: [id number] . 01 Material submitted: . stomach - RANDOM GASTRIC BX . 01 Clinical history: . R/O H PYLORI . 02 Diagnosis: Gastric mucosa, gastric rule out H. pylori, endoscopic biopsy: - Mild chronic inflammation with features of reactive gastropathy. - Negative for intestinal metaplasia or atrophy. - Negative for Helicobacter pylori (properly controlled immunohistochemical stain performed). (IUV/db; 05/24/2020) LBQ 05/24/2020 1510 Local . 02 Electronically signed: . Marietta Dowling MD, Pathologist NPI- [id number] . 01 Gross description: . The specimen is received in formalin, labeled "Chelly Lopez, random gastric biopsy, R/O H. pylori". Received are four segments of pale bone soft tissue ranging in size from 0.4 to 1.1 cm in maximum dimensions. The specimen is submitted entirely in cassette A1. (CAA; 05/23/2020) QAC/QAC 05/23/2020 1736 Local . 02 Pathologist provided ICD-10: K31.9 . 02 CPT . 679160, [id number] Specimen Comment: A courtesy copy of this report has been sent to [phone] Specimen Comment: [phone] Specimen Comment: Report sent to / DR DU Performed at: [address] [id number] MD Jerry Cabrera MD Phone: [phone] Performed at: [address] [id number] [address] [address] PATHOLOGY RPT PROCEDURE Name: CHELLY LOPEZ Room #: REG JOSR Keller#: [id number] Admission: 05/23/20 Date of : 84 Discharge: Report #: [id number] Path Case #: [id number] MD Marietta Dowling MD Phone: [phone]
== END | disposition home or self-care (01) ==
LOC: GI 06:18
PROVIDERS: ATTEND Internal Medicine Gastroenterology
DX: Z01.818 Encounter for other preprocedural examination (principal); E66.01 Morbid (severe) obesity due to excess calories; K44.9 Diaphragmatic hernia without obstruction or gangrene; K29.50 Unspecified chronic gastritis without bleeding; M19.90 Unspecified osteoarthritis, unspecified site; F32.9 Major depressive disorder, single episode, unspecified; F41.9 Anxiety disorder, unspecified; G47.30 Sleep apnea, unspecified; M10.9 Gout, unspecified; G47.00 Insomnia, unspecified; Z98.890 Other specified postprocedural states; Z79.899 Other long term (current) drug therapy; Z91.040 Latex allergy status; Z68.42 Body mass index [BMI] 45.0-49.9, adult
CPT/HCPCS: 62110; 62900

== ENCOUNTER → 2020-05-30 | Outpatient (CLI) | payer OTHER ==
[~2020-05-30] VITALS: Ht 172.7 cm; Wt 152.0 kg
--- NOTE | ~2020-05-30 | HPC ---
[facility] [place] [address] PAIN MANAGEMENT CONSULTATION Name: CHELLY LOPEZ Room #: REG JOSR SmithRupinderJackieRupinder#: [id number] Admission: 05/30/20 Attend Phys: Carlos Enrique Russ MD Discharge: Date of : 84 Report #: [id number] CC: Tonja Russ DATE OF SERVICE: 05/30/2020 Followup visit for chronic low back pain, lumbar radiculopathy and spinal stenosis. The patient returns to pain clinic today for epidural injection. Her last injection was performed roughly 2 months ago. The pain is increasing in severity. It radiates down into both legs. It is worse with standing and weightbearing. She remains on opioids; I provided them to her under terms of written agreement. Her MME remains under 30. I have agreed to allow her to have some additional medicines for the bad days, but would still try to keep her medicine at no more than 2 to maximum 3 tablets a day. I have prescribed 75 tablets instead of 60. We discussed tolerance and how it may develop and avoiding higher doses of opioids as a goal. MME again should be in the range of 20-30. MRI showing spinal stenosis is consistent with neurogenic claudication. There is a diffuse bulging disk at L2-L3 and narrowing of the thecal sac to 7 mm. There is also impingement at L4-L5 and I have been injecting her in between at L3-L4. PHYSICAL EXAMINATION: GENERAL: Pleasant female, alert and oriented. VITAL SIGNS: Blood pressure is 145/85, heart rate ____, respirations 20. MUSCULOSKELETAL: She moves independently from sitting to standing position, walks with antalgic gait. There is pain radiating in both legs. IMPRESSION: Lumbar radiculopathy secondary to spinal stenosis. PROCEDURE: Lumbar epidural injection L3-L4 under fluoroscopic guidance. PROCEDURE NOTE: After both written and informed consent to include risk of spinal cord damage, increased pain, weakness and dural puncture, the patient was taken to the fluoroscopy suite, placed in the prone position. After sterile prep and drape, a skin wheal with lidocaine was raised. A 6-inch Chiba needle was inserted in the midline at L3-L4 with good loss to resistance. Negative aspiration for cerebrospinal fluid or blood was noted. Then 1 mL of Omnipaque under biplanar fluoroscopy showed good spread within the epidural space. This was followed with 80 mg of triamcinolone plus 3 mL of 0.5% preservative-free lidocaine injected to flush the needle; it was removed. The patient was monitored for an appropriate period of time and discharged in good and stable condition. By: [id number] Carlos Enrique Russ MD /nt
[2020-05-30 13:52] VITALS: BP 145/85
--- NOTE | 2020-05-30 14:14 | NUR ---
Pain Clinic Assessment: 1. History of Osteoarthritis: knees elbows shoulders hips History of Rheumatoid Arthritis: DENIES 2. Height: 5 ft. 8 in. 172.7 cm. Weight: 335.0 lb. oz. 151.956 kg. Patient's BMI: 50.9 3. Vital Signs: BP: 145/85 Pulse: 88 Resp: 20 Temp: 02 Sat: 100 ECG Mon: 4. Pain Intensity: 10 5. Fall Risk: Dizziness: N Needs help standing or walking: N Fallen in the last 3 months: N Fall risk comments: 6. Patient on Blood Thinner: None 7. History of Hypertension: N 8. Opioid Therapy greater than 6 weeks: N Opiate Contract Signed: 9. Risk Assessment Tool Provided: 2-low 10. Functional Assessment Tool: 60/70 11. Recreational Drug Use: Never Drug Type: Tobacco Use: Former Smoker Tobacco Type: Amount or Packs/day: How Many Years: Alcohol Use: Yes Frequency: Quant:
== END | disposition home or self-care (01) ==
LOC: PAIN 06:54
PROVIDERS: ATTEND Anesthesiology Pain Medicine
DX: M54.16 Radiculopathy, lumbar region (principal); M48.062 Spinal stenosis, lumbar region with neurogenic claudication; G89.29 Other chronic pain; Z98.890 Other specified postprocedural states; Z79.899 Other long term (current) drug therapy; Z79.891 Long term (current) use of opiate analgesic; Z91.040 Latex allergy status

== ENCOUNTER → 2020-05-31 | Outpatient (CLI) | payer OTHER | LOC: RAD 13:45 | PROVIDERS: ATTEND Nurse Practitioner | DX: Z12.31 Encounter for screening mammogram for malignant neoplasm of breast (principal) ==

== ENCOUNTER → 2020-06-09 | Outpatient (CLI) | payer OTHER ==
[2020-06-09 13:31] LABS: ABSOLUTE NEUTROPHILS 5.6 thou/uL (1.4-8.2); BASOPHILS 0.6 % (0.0-2.0); EOSINOPHILS 1.7 % (0.0-3.0); HEMATOCRIT 43.7 % (37.0-47.0); HEMOGLOBIN 14.5 gm/dL (12.0-15.0); LYMPHOCYTES 31.9 % (24.0-44.0); MCH 32.6 pg (26.0-34.0); MCHC 33.1 g/dL (28.0-37.0); MCV 98.6 fL (80.0-100.0); MONOCYTES 6.1 % (1.0-8.0); PLATELET COUNT 237 thou/uL (150-400); POLYS 59.7 % (36.0-66.0); RBC 4.44 mil/uL (4.20-5.00); RDW 14.6 % (10.5-14.5); WBC 9.4 thou/uL (4.0-11.0)
[2020-06-09 13:53] LABS: ALBUMIN 3.9 g/dL (3.4-5.0); ANION GAP 11 mmol/L (7-16); BUN 10 mg/dL (7-18); CALCIUM 9.6 mg/dL (8.5-10.1); CHLORIDE 105 mmol/L (98-107); CHOLESTEROL 180 mg/dL (<200); CO2 24 mmol/L (21-32); CREATININE 0.9 mg/dL (0.6-1.0); GLUCOSE 85 mg/dL (74-106); HDL CHOLESTEROL 78 mg/dL (>40); LDL CHOLESTEROL 90 mg/dL (<100); POTASSIUM 4.3 mmol/L (3.5-5.1); SGOT 16 U/L (15-37); SGPT 22 U/L (30-65); SODIUM 140 mmol/L (136-145); TC:HDL 2.3 Ratio (Not establshd); TOTAL BILIRUBIN 0.6 mg/dL (0.2-1.0); TOTAL PROTEIN 7.1 g/dL (6.4-8.2); TRIGLYCERIDE 62 mg/dL (<150); VLDL 12 mg/dL (<40)
[2020-06-11 04:06] LABS: HIV ANTIBODY Non Reactive (Non Reactive)
== END ==
LOC: LAB 12:52
PROVIDERS: ATTEND Nurse Practitioner
DX: Z00.00 Encounter for general adult medical examination without abnormal findings (principal)

== ENCOUNTER 2020-08-27 17:12 | Emergency (ER) | payer OTHER ==
[~2020-08-27] VITALS: Ht 175.3 cm; Wt 145.2 kg
[2020-08-27 19:38] LABS: URINE BILIRUBIN NEGATIVE (Negative); URINE BLOOD 3+ (Negative); URINE CLARITY CLEAR; URINE COLOR YELLOW; URINE GLUCOSE-RANDOM* NEGATIVE (Negative); URINE KETONES 1+ (Negative); URINE LEUKOCYTES-REFLEX TRACE (Negative); URINE NITRITE-REFLEX NEGATIVE (Negative); URINE PROTEIN (DIPSTICK) TRACE (Negative); URINE SPECIFIC GRAVITY 1.015 (1.005-1.035)
[2020-08-27 19:59] LABS: CASTS None Seen /LPF (None Seen); CRYSTALS None Seen /LPF (None Seen); SQUAMOUS 4-10 Moderate /LPF (0-3); URINE RBC 3-10 Few /HPF (0-2)
[2020-08-27 20:00] LABS: BACTERIA-REFLEX 1-9 Few /HPF (None Seen); URINE WBC-REFLEX 0-5 Rare /HPF (0-5)
[2020-08-27] MEDS ORDERED: HYDROCODON-ACE1 EAC7 PO (21:23)
[2020-08-27] MEDS ORDERED: FLOMAX0.4 MG PO (21:42)
[2020-08-27 21:52] VITALS: BP 141/81
== END 2020-08-27 21:40 | disposition home or self-care (01) ==
LOC: ER 17:12
PROVIDERS: Nurse Practitioner
DX: R31.9 Hematuria, unspecified (principal); N20.0 Calculus of kidney; Z79.899 Other long term (current) drug therapy; Z91.040 Latex allergy status; Z87.891 Personal history of nicotine dependence; V49.9XXA Car occupant (driver) (passenger) injured in unspecified traffic accident, initial encounter; Y93.89 Activity, other specified; Y92.89 Other specified places as the place of occurrence of the external cause; Y99.8 Other external cause status

== ENCOUNTER → 2020-09-08 | Outpatient (CLI) | payer OTHER ==
[~2020-09-08] MED LIST changes: +FLOMAX0.4 MG PO
== END ==
LOC: TELEPC 06:48
PROVIDERS: ATTEND Anesthesiology Pain Medicine
DX: M54.16 Radiculopathy, lumbar region (principal); M48.061 Spinal stenosis, lumbar region without neurogenic claudication; G89.29 Other chronic pain; F11.20 Opioid dependence, uncomplicated; Z79.899 Other long term (current) drug therapy

== ENCOUNTER → 2020-09-29 | Outpatient (CLI) | payer OTHER ==
[~2020-09-29] VITALS: Ht 172.7 cm; Wt 150.2 kg
[2020-09-29 15:20] VITALS: BP 137/79
--- NOTE | 2020-09-29 15:39 | NUR ---
Pain Clinic Assessment: 1. History of Osteoarthritis: knees elbows shoulders hips History of Rheumatoid Arthritis: DENIES 2. Height: 5 ft. 8 in. 172.7 cm. Weight: 331.2 lb. oz. 150.232 kg. Patient's BMI: 50.4 3. Vital Signs: BP: 137/79 Pulse: 78 Resp: 20 Temp: 02 Sat: 100 ECG Mon: 4. Pain Intensity: 8 5. Fall Risk: Dizziness: N Needs help standing or walking: N Fallen in the last 3 months: N Fall risk comments: 6. Patient on Blood Thinner: None 7. History of Hypertension: N 8. Opioid Therapy greater than 6 weeks: N Opiate Contract Signed: 9. Risk Assessment Tool Provided: 2-low 10. Functional Assessment Tool: 60/70 11. Recreational Drug Use: Never Drug Type: Tobacco Use: Former Smoker Tobacco Type: Amount or Packs/day: How Many Years: Alcohol Use: Yes Frequency: Special Occasions Quant: 1
== END ==
LOC: PAIN 08:04
PROVIDERS: ATTEND Anesthesiology Pain Medicine
DX: M54.16 Radiculopathy, lumbar region (principal); M48.061 Spinal stenosis, lumbar region without neurogenic claudication; I10 Essential (primary) hypertension; F41.9 Anxiety disorder, unspecified; G89.29 Other chronic pain